=== PATIENT | male | born 1985 | race African-American/Black ===

== ENCOUNTER 2021-10-16 16:27 | Emergency (ER) | payer OTHER ==
[~2021-10-16] VITALS: Ht 182.9 cm; Wt 83.9 kg
== END 2021-10-17 00:35 | disposition home or self-care (01) ==
LOC: ER 16:27
DX: S93.501A Unspecified sprain of right great toe, initial encounter (principal); V00.148A Other scooter (nonmotorized) accident, initial encounter; Y93.9 Activity, unspecified; Y92.89 Other specified places as the place of occurrence of the external cause; Z88.8 Allergy status to other drugs, medicaments and biological substances